=== PATIENT | female | born 1965 | race Caucasian/White ===

== ENCOUNTER 2018-05-05 10:05 | Day surgery (SDC) | payer OTHER ==
[~2018-05-05] VITALS: Ht 165.1 cm; Wt 54.0 kg
[2018-05-05 10:49] VITALS: Ht 165.1 cm; Wt 54.0 kg
[2018-05-05] MEDS ORDERED: NO ACTIVE MEDS (10:55)
[2018-05-05 11:07] VITALS: BP 143/63; PULSE 47; RESP 14
[2018-05-05 11:55] VITALS: BP 137/76; PULSE 72; RESP 16
[2018-05-05 12:00] VITALS: BP 130/75; PULSE 72; RESP 16
[2018-05-05] MEDS ORDERED: FENTAnyl 50 MCG/ML VIAL ONE (12:10)
[2018-05-05] MEDS ORDERED: MIDAZOLAM 1 MG/ML 2 ML INJ ONE (12:10)
[2018-05-05] MEDS ORDERED: ATROPINE 1 MG INJ ONE (12:10)
[2018-05-05 12:23] VITALS: BP 122/76; PULSE 70; RESP 16
== END 2018-05-05 15:46 | disposition home or self-care (01) ==
LOC: GIL 10:05
PROVIDERS: ATTEND Internal Medicine Gastroenterology
DX: Z12.11 Encounter for screening for malignant neoplasm of colon (principal); D12.7 Benign neoplasm of rectosigmoid junction; K57.30 Diverticulosis of large intestine without perforation or abscess without bleeding
CPT/HCPCS: 45380; 88305; J0461; J2250; J3010; Z7610